=== PATIENT | male | born 1990 | race Caucasian/White ===

== ENCOUNTER 2017-02-16 14:10 | Emergency (ER) | payer SELFPAY | END 2017-02-16 16:03 | disposition home or self-care (01) | LOC: D.ER 14:10 | DX: S63.502A Unspecified sprain of left wrist, initial encounter (principal); Y93.83 Activity, rough housing and horseplay; Y93.89 Activity, other specified; Y92.019 Unspecified place in single-family (private) house as the place of occurrence of the external cause ==